=== PATIENT | male | born 1950 | race Caucasian/White ===

== ENCOUNTER 2018-05-20 06:55 | Day surgery (SDC) | payer OTHER ==
[~2018-05-20 06:55] MED LIST: ANALPRAM HC 2.530 GM RC; AVAPRO300 MG PO; INTEGRA F CAPS1 EACH PO; INTESTINEX680 MG PO; METFORMIN HCL500 MG PO; PRILOSEC10 MG PO; TRAM1TAB98 PO; ZANTAC300 MG PO; [UNRECOGNIZED DRUG - OTHER] PO
== END 2018-05-20 12:10 | disposition home or self-care (01) ==
LOC: AMB-ENDOS 06:55
DX: D12.2 Benign neoplasm of ascending colon (principal)